=== PATIENT | female | born 1940 | race Caucasian/White ===

== ENCOUNTER → 2017-10-12 | Outpatient (CLI) | payer OTHER | LOC: FIMAGING 12:30 | PROVIDERS: ATTEND Family Medicine | DX: M17.11 Unilateral primary osteoarthritis, right knee (principal) ==

== ENCOUNTER → 2017-10-17 | Outpatient (CLI) | payer OTHER | LOC: FIMAGING 09:57 | PROVIDERS: ATTEND Family Medicine | DX: S83.271A Complex tear of lateral meniscus, current injury, right knee, initial encounter (principal); S83.241A Other tear of medial meniscus, current injury, right knee, initial encounter; M71.21 Synovial cyst of popliteal space [Baker], right knee; M25.461 Effusion, right knee ==

== ENCOUNTER → 2017-12-22 | Outpatient (CLI) | payer OTHER ==
--- NOTE | 2017-12-22 15:11 | CPEKG ---
Heart Rate: 74 RR Interval: 811 P-R Interval: 136 QRSD Interval: 78 QT Interval: 388 QTC Interval: 431 P Holly: 65 QRS Holly: 58 T Wave Holly: 74 EKG Severity - NORMAL ECG - EKG Impression: SINUS RHYTHM EKG Impression: NONSPECIFIC ST_T WAVE ABNORMAILITES Electronically Signed By: Po Caceres 23-Dec-2017 08:27:35
== END ==
LOC: BCP 14:49
PROVIDERS: ATTEND Ophthalmology Pediatric Ophthalmology and Strabismus Specialist
DX: Z01.810 Encounter for preprocedural cardiovascular examination (principal)

== ENCOUNTER → 2018-02-17 | Outpatient (CLI) | payer OTHER ==
[~2018-02-17] MED LIST: IOPAMIDOL (ISOVUE-300) 150 ML BTL ONE
== END ==
LOC: FIMAGING 12:32
PROVIDERS: ATTEND Physician Assistant Medical
DX: N20.0 Calculus of kidney (principal); N28.9 Disorder of kidney and ureter, unspecified
CPT/HCPCS: 74178; Q9967; 82565-PO

== ENCOUNTER 2018-04-09 11:49 | Emergency (ER) | payer OTHER ==
--- NOTE | 2018-04-09 12:18 | EDPHY ---
HPI/HX/ROS/PE/MDM Narrative: CHIEF COMPLAINT: Elbow injury HPI: The patient is an anticoagulated 78 y/o female with a history of CVA arriving with her complaining of a wound on her right elbow that will not stop bleeding. She was carrying pitcher of water and tripped over a rug this morning, causing her to catch herself poorly and injure her right elbow. She has been unable to control the bleeding since then. She denies striking her head, loss of consciousness, or any other injuries from this event. REVIEW OF SYSTEMS: A comprehensive 10 system review of systems is otherwise negative aside from elements mentioned in the history of present illness. PMH: CVA 2016 - Plavix; hypertension; recurrent UTI; CAD post CABG x4; ; appendectomy SOCIAL HISTORY: at bedside. Lives in [place]. Retired. Prior medical records reviewed including admission 01/29/16 for abdominal pain and vomiting. PHYSICAL EXAM: General:Patient is alert, in no acute distress. ENT:Eyes are normal to inspection. ENT inspection normal. Neck: Normal inspection. Full range of motion. Respiratory:No respiratory distress. Breath sounds normal bilaterally. Cardiovascular: Regular rate and rhythm. Strong peripheral pulses. Normal cap refill. Abdomen:The abdomen is nontender to palpation. There are no peritoneal signs. Back: Normal to inspection. No tenderness to palpation. Skin: Normal color. No rash. Warm and dry. Extremities: Right forearm: large macerated laceration with active bleeding along ulnar aspect of arm. Otherwise normal appearance. Full range of motion. Neuro: Oriented x3. Normal motor function. Normal sensory function. ED Course: This is an anticoagulated 78 y/o female who presents with an isolated injury to her right arm secondary to a mechanical trip and fall where she caught her elbow on something causing a large laceration. No other injuries noted on exam. Plan for wound care. Procedure: Laceration repair. Verbal consent was obtained from the patient. The 10cm irregular laceration with multiple flaps on the right forearm was anesthetized using lidocaine with epinephrine. The wound was cleaned with standard ED protocol, draped and explored to its base with a gloved finger. There were no deep structures involved. No tendon injury was identified. The wound required extensive revision of flaps. The wound was repaired in single layer technique with 14 sutures of 4-0 Prolene. The wound repair was complex and there was a small triangle-shaped portion that was unable to be repaired due to missing flesh. The procedure was performed by myself, Dr. Maria. Right elbow x-ray: no fracture. Patient will be discharged with standard care and follow up instructions. Return precautions discussed. She is comfortable with this plan. MDM: This patient presents with a rather complex laceration of the skin near her elbow that required extensive realignment of flaps. There is a triangular area of the wound in which skin is missing, so this will need to granulate in. I discussed these facts with patient in detail as well as need for close follow- up with her PCP. The laceration does not penetrate fascia and XRs are normal. - Data Points Imaging: I viewed and interpreted images myself Medications Given: Discontinued Medications Cyclobenzaprine HCl (Flexeril) 10 mg PO EDNOW ONE Stop: 04/09/18 12:55 Last Admin: 04/09/18 12:56 Dose: 10 mg General Time Seen by Provider: 04/09/18 11:56 Initial Vital Signs: Initial Vital Signs Temperature (C) 36.5 C 04/09/18 11:56 Heart Rate 76 04/09/18 11:56 Respiratory Rate 16 04/09/18 11:56 Blood Pressure 161/87 H 04/09/18 11:56 O2 Sat (%) 96 04/09/18 11:56 O2 Delivery Mode Room Air Allergies/Adverse Reactions: No Known Allergies Allergy (Unverified 01/29/16 17:23) Home Medications: Medication Instructions Recorded Aspirin [Aspirin 81mg (*)] 81 mg PO Q2D 01/29/16 Cyclobenzaprine [Flexeril 10 MG 10 mg PO HS PRN 01/29/16 (*)] Ibuprofen [Motrin (*)] 800 mg PO HS PRN 01/29/16 Lisinopril [Zestril 20 mg (*)] 20 mg PO DAILY 01/29/16 Verapamil [Calan 40MG (*)] 40 mg PO QID 01/29/16 Cholecalciferol Vit D3 [Vitamin D3 1,000 units PO DAILY 01/30/16 (*)] Ferrous Sulfate [Ferrous Sulf 325 325 mg PO DAILY 01/30/16 MG (*)] Herbals/Supplements -Info Only 1 ea PO DAILY 01/30/16 Transfer-3 Fatty Acids [Fish Oil 1000 1,000 mg PO DAILY 01/30/16 mg (*)] Cefdinir [Omnicef (*)] 300 mg PO BID #8 cap 01/31/16 Departure - Departure Disposition: Home, Routine, Self-Care Clinical Impression: Forearm laceration Condition: Good Instructions: Care For Your Stitches (ED), Laceration (ED) Additional Instructions: 1. Keep suture clean and dry. Do not scrub site. 2. Follow up with your primary care provider within 1 week for reevaluation. 3. Return in 14 days for suture removal. 4. Return sooner for severe pain or signs of infection including dramatic increase in redness, swelling, discharge, or fever. Referrals: Grace Mejia MD [Primary Care Provider] - As per Instructions Report Scribed for: Med Maria Report Scribed by: Simi Gloria Date of Report: 04/09/18 Time of Report: 12:20 Physician Review and Approval Statement: Portions of this note were transcribed by an ED scribe. I personally performed the history, physical exam, and medical decision making; and confirm the accuracy of the information in the transcribed note.
[2018-04-09] MEDS ORDERED: CYCLOBENZAPRINE 10 MG TAB PO ONE (12:54)
[2018-04-09 14:44] VITALS: BP 124/56
== END 2018-04-09 14:43 | disposition home or self-care (01) ==
LOC: EDUNIT#
PROC: 0HQBXZZ Repair Right Upper Arm Skin, External Approach (ICD-10-PCS; principal; 2018-04-09)
DX: S51.811A Laceration without foreign body of right forearm, initial encounter (principal); I10 Essential (primary) hypertension; W01.10XA Fall on same level from slipping, tripping and stumbling with subsequent striking against unspecified object, initial encounter; Y92.9 Unspecified place or not applicable

== ENCOUNTER 2018-04-11 09:03 | Emergency (ER) | payer OTHER ==
--- NOTE | 2018-04-11 09:16 | EDPHY ---
H & P Stated Complaint: Wants dsg change&someone to look @ suture site/R hand;here Time Seen by Provider: 04/11/18 09:16 - Personal History Current Tetanus Diphtheria and Acellular Pertussis (TDAP): Unsure - Medical/Surgical History Hx Asthma: No Hx Chronic Respiratory Disease: No Hx Diabetes: No Hx Cardiac Disease: Yes Hx Renal Disease: No Hx Cirrhosis: No Hx Alcoholism: No Hx HIV/AIDS: No Hx Splenectomy or Spleen Trauma: No Other PMH: HTN/QUAD BYPASS - Social History Smoking Status: Never smoked Constitutional: Initial Vital Signs Temperature (C) 36.7 C 04/11/18 09:10 Heart Rate 81 04/11/18 09:10 Respiratory Rate 18 04/11/18 09:10 Blood Pressure 119/60 04/11/18 09:10 O2 Sat (%) 97 04/11/18 09:10 O2 Delivery Mode Room Air Allergies/Adverse Reactions: No Known Allergies Allergy (Verified 04/11/18 09:09) Home Medications: Medication Instructions Recorded Aspirin [Aspirin 81mg (*)] 81 mg PO Q2D 01/29/16 Cyclobenzaprine [Flexeril 10 MG 10 mg PO HS PRN 01/29/16 (*)] Ibuprofen [Motrin (*)] 800 mg PO HS PRN 01/29/16 Lisinopril [Zestril 20 mg (*)] 20 mg PO DAILY 01/29/16 Verapamil [Calan 40MG (*)] 40 mg PO QID 01/29/16 Cholecalciferol Vit D3 [Vitamin D3 1,000 units PO DAILY 01/30/16 (*)] Ferrous Sulfate [Ferrous Sulf 325 325 mg PO DAILY 01/30/16 MG (*)] Herbals/Supplements -Info Only 1 ea PO DAILY 01/30/16 [place]-3 Fatty Acids [Fish Oil 1000 1,000 mg PO DAILY 01/30/16 mg (*)] Cefdinir [Omnicef (*)] 300 mg PO BID #8 cap 01/31/16 Medical Decision Making ED Course/Re-evaluation: CHIEF COMPLAINT: Wound recheck HISTORY OF PRESENT ILLNESS: The patient is an anticoagulated 78 y/o female arriving with her for a wound check on her right arm. Two days ago she stumbled and cut her right forearm, causing a 10cm irregular laceration that could not be completely approximated. She required 14 sutures at the site. She' s had some waxing and waning pain at the site and swelling and ecchymosis below the site of the bandage since then. She has also noticed some bleed-through on her bandage. She denies fever, redness, or other complaints. REVIEW OF SYSTEMS: A comprehensive 10 system review of systems is otherwise negative aside from elements mentioned in the history of present illness and medical decision making. PHYSICAL EXAM: HR, BP, O2 Sat, RR. Temp noted General Appearance: Alert, well hydrated, appropriate, and non-toxic appearing. Head: Atraumatic without scalp tenderness or obvious injury Eyes: Pupils equal, round, reactive to light and accommodation, EOMI, no trauma , no injection. Nose: Atraumatic, no rhinorrhea, clear. Throat: Mucus membranes moist. Neck: Supple, nontender, no lymphadenopathy. Respiratory: No retractions, no distress, no wheezes, and no accessory muscle use. Lungs are clear to auscultation bilaterally. Cardiovascular: Regular rate and rhythm, no murmurs, rubs, or gallops. Good capillary refill all extremities. Gastrointestinal: Abdomen is soft, nontender, non-distended, no masses, no rebound, no guarding, no peritoneal signs. Musculoskeletal: Normal active ROM of all extremities, atraumatic apart from well-healing wound on right forearm. Site is clean, dry, and intact. Mild oozing into bandage noted. Mild swelling and ecchymosis distal to the level of the pressure bandage. Neurological: Alert, appropriate, and interactive. The patient has non-focal cranial nerves, motor, sensory, and cerebellar exam. Skin: No rashes, good turgor, no nodules on palpation. Past medical history: CVA - Plavix; CAD; hypertension; Past surgical history: CABG x4 Family history: Noncontributory Social history: at bedside. Lives in [place]. Retired. DIFFERENTIAL DIAGNOSIS: The differential diagnosis for the patient's symptoms included but was not limited to acute wound recheck. MEDICAL DECISION MAKING: This is an anticoagulated 78 y/o female who presents for a wound recheck of a laceration on her right forearm suffered two days ago during a mechanical trip. The wound is clean, dry, and intact without evidence of infection or dehiscence. Plan for re-bandaging here and recommendation to follow up again in 2 days either with her PCP or in the ED for reevaluation. Tylenol as directed for pain. She is comfortable with this plan. At discharge, patient mentioned she is feeling slightly dizzy today. I offered options for further investigation of this and admission for observation, but she would prefer to go home and sleep. She feels safe to go home with the assistance of her . She understands she can return at any time for further evaluation. Strict return precautions discussed. Departure - Departure Disposition: Home, Routine, Self-Care Clinical Impression: Encounter for wound re-check Condition: Good Instructions: Acute Wounds (ED) Additional Instructions: Please follow up with your primary care provider on Wednesday for a recheck of your wound. If you are unable to get into your doctor by then, please return to the ED for a recheck and bandage change here. Return sooner if you experience severe pain, dramatic increase in swelling, fever, or other worsening of condition. Use Tylenol as directed for pain and elevate arm above the level of your heart when possible to help with swelling. Adult Pain & Fever Control: We recommend Acetaminophen (Tylenol) and Ibuprofen (Motrin,Advil) for pain and fever control. When fever is high or pain severe, both drugs can be used at the same time, but at different intervals. Please note the time differences. Your dose is: Acetaminophen 500mg every 4 to 6 hours Note: do not take Acetaminophen with Hydrocodone (Vicodin, Lortab) or Oxycodone (Percocet). These medications also contain Acetaminophen. No more than 3000mg of Acetaminophen should be taken in 24 hours (for an adult). Referrals: Grace Mejia MD [Primary Care Provider] - As per Instructions Report Scribed for: Helio Ponce Report Scribed by: Simi Gloria Date of Report: 04/11/18 Time of Report: 09:27
[2018-04-11 09:53] VITALS: BP 120/81
== END 2018-04-11 09:55 | disposition home or self-care (01) ==
DX: Z48.00 Encounter for change or removal of nonsurgical wound dressing (principal); I10 Essential (primary) hypertension; Z95.1 Presence of aortocoronary bypass graft

== ENCOUNTER 2018-04-15 16:06 | Observation (INO) | payer OTHER ==
[2018-04-15] MEDS ORDERED: BUPIVACAINE 0.5% 30 ML SDV ONE (17:14)
[2018-04-15] MEDS ORDERED: EPINEPHrine 1 MG/ML INJ ONE (17:14)
[2018-04-15] MEDS ORDERED: ceFAZolin 2 GM/DEXTROSE 100 ML IV ONE (18:07)
--- NOTE | 2018-04-15 18:30 | GHP ---
DATE OF ADMISSION: 04/15/2018 CHIEF COMPLAINT: Right arm laceration. HISTORY OF PRESENT ILLNESS: The patient is a 78-year-old woman who fell Wednesday morning. She last took her Plavix on Wednesday. She had a 10 cm irregular laceration which was reapproximated with 14 sutures. She was re-seen at the ER on April 11, 2018. She had an appointment with her primary care today who noticed devitalized tissue, dehiscence of the wound and reached out to me. PAST MEDICAL HISTORY: Includes hypertension and bypass surgery, history of CVA , retinal hemorrhage of right eye. PAST SURGICAL HISTORY: Adenoidectomy, bladder surgery, CABG, hysterectomy, tonsillectomy. MEDICATIONS: Reviewed in [facility]. ALLERGIES: Ancef and cephalosporins. SOCIAL HISTORY: She is . She has never used tobacco products. REVIEW OF SYSTEMS: 10-point review of systems negative except per HPI. PHYSICAL EXAM: VITALS: Reviewed. Pleasant, thin, well-groomed woman sitting on bed, at bedside. HEENT: Normocephalic. No gross hearing deficits. Mucous membranes moist. Pupils equal and round. No scleral icterus. LUNGS: Clear to auscultation bilaterally. No increased work of breathing. CARDIAC: Regular rate. ARM: Her right arm is dressed. I did see photos of the wound which has completely dehisced and devitalized tissue. NEURO: Grossly intact. SKIN: As above. PSYCH: Mood and affect normal. IMPRESSION AND PLAN: A 78-year-old, status post traumatic fall while on Plavix with wound dehiscence. I will take her to the operating room to debride skin, soft tissue and placed a wound VAC. Risks and benefits, including but not limited to, stroke, heart attack, , blood clots, infection, bleeding, need for additional procedures were all explained. She had her questions answered to her satisfaction and signed the consent. /[id number]/MODL MTDD
[2018-04-15] MEDS ORDERED: LABETALOL HCL 5 MG/ML 20 ML MDV IVP PRN (19:29)
[2018-04-15] MEDS ORDERED: ENALAPRILAT DIHYDRATE 1.25 MG/ML VIAL IVP PRN (19:29)
[2018-04-15] MEDS ORDERED: HYDROCODONE/APAP 5/325 TAB PO PRN (19:29)
[2018-04-15] MEDS ORDERED: PROMETHAZINE HCL 25 MG/ML INJ IVP PRN (19:29)
[2018-04-15] MEDS ORDERED: NALOXONE HCL 0.4 MG/ML INJ IVP PRN (19:29)
[2018-04-15] MEDS ORDERED: ONDANSETRON 4 MG/2 ML VIAL IVP PRN ×2 (19:29→22:17)
[2018-04-15] MEDS ORDERED: ACETAMINOPHEN 500 MG TAB PO PRN (19:29)
--- NOTE | 2018-04-15 19:29 | PDANEPAE ---
ANE Past Medical History - Cardiovascular History Hx Hypertension: Yes Hx Arrhythmias: No Hx Chest Pain: No Hx Coronary Artery / Peripheral Vascular Disease: Yes Hx CHF / Valvular Disease: No Hx Palpitations: No Cardiovascular History Comment: CABG 2006, USED TO HAVE TACHYCARDIA PRIOR TO TAKING VERAPAMIL - Pulmonary History Hx COPD: No Hx Asthma/Reactive Airway Disease: No Hx Recent Upper Respiratory Infection: No Hx Oxygen in Use at Home: No Hx Sleep Apnea: No - Neurologic History Hx Cerebrovascular Accident: Yes Hx Seizures: No Hx Dementia: No - Endocrine History Hx Diabetes: No Obesity: no - Renal History Hx Renal Disorders: No Renal History Comment: UTI - Liver History Hx Hepatic Disorders: No - Neurological & Psychiatric Hx Hx Neurological and Psychiatric Disorders: Yes Neurological / Psychiatric History Comment: 2016 CVA - Cancer History Hx Cancer: No - Congenital Disorder History Hx Congenital Disorders: No - GI History GERD: no Hx Gastrointestinal Disorders: No - Chronic Pain History Chronic Pain: Yes (KNEES) - Surgical History Prior Surgeries: CABG X4 2006. BLADDER SX. HYSTERECTOMY. SINUS SURGERY. RIGHT HAND PIN ANE Review of Systems Review of Systems: - Exercise capacity METS (RN): 3 METS ANE Patient History - Allergies Allergies/Adverse Reactions: No Known Allergies Allergy (Verified 04/11/18 09:09) - Home Medications Home medications: home medication list seen and reviewed Home Medications: Cyclobenzaprine [Flexeril 10 MG (*)] 10 mg PO HS PRN 01/29/16 [Last Taken ] Ibuprofen [Motrin (*)] 800 mg PO HS PRN 01/29/16 [Last Taken 04/14/18] Lisinopril [Zestril 20 mg (*)] 20 mg PO DAILY 01/29/16 [Last Taken 04/14/18] Verapamil [Calan 40MG (*)] 40 mg PO QID 01/29/16 [Last Taken 04/15/18 08:00] Cholecalciferol Vit D3 [Vitamin D3 (*)] 1,000 units PO DAILY 01/30/16 [Last Taken 04/14/18] Ferrous Sulfate [Ferrous Sulf 325 MG (*)] 325 mg PO DAILY 01/30/16 [Last Taken 04/14/18] Herbals/Supplements -Info Only 1 ea PO DAILY 01/30/16 [Last Taken 04/14/18] SHARITA-D 12 HOUR TABLET 04/15/18 [Last Taken 04/15/18 08:00] Acetamin-Codein 300-30 mg/12.5 04/15/18 [Last Taken 04/14/18] Clopidogrel 04/15/18 [Last Taken 04/09/18] Duloxetine HCl 04/15/18 [Last Taken 04/15/18 08:00] Methenamine Brit 04/15/18 [Last Taken 04/14/18] Methocarbamol 04/15/18 [Last Taken 04/14/18] - NPO status NPO Status: no food or drink >8 hours NPO Since - Liquids (Date): 04/15/18 NPO Since - Liquids (Time): 08:00 NPO Since - Solids (Date): 04/15/18 NPO Since - Solids (Time): 11:00 - Anes Hx Anes Hx: no prior problems - Smoking Hx Smoking Status: Never smoked ANE Labs/Vital Signs - Vital Signs Blood Pressure: 142/76 Heart Rate: 71 Respiratory Rate: 14 O2 Sat (%): 95 Height: 154.94 cm Weight: 55.338 kg ANE Physical Exam - Airway Neck exam: FROM Mallampati Score: Class 2 Mouth exam: normal dental/mouth exam - Pulmonary Pulmonary: no respiratory distress, no rales or rhonchi, clear to auscultation - Cardiovascular Cardiovascular: regular rate and rhythym, no murmur, rub, or gallop - ASA Status ASA Status: III ANE Anesthesia Plan Anesthesia Plan: GA w LMA
[2018-04-15] MEDS ORDERED: fentaNYL 100 MCG/2 ML INJ ONE ×2 (19:53→22:14)
[2018-04-15] MEDS ORDERED: PROPOFOL 200 MG/20 ML VIAL ONE ×2 (19:53→20:50)
[2018-04-15] MEDS ORDERED: LIDOCAINE 2% JELLY 5 ML TUBE ONE (19:53)
[2018-04-15] MEDS ORDERED: ONDANSETRON 4 MG/2 ML VIAL ONE (19:53)
[2018-04-15] MEDS ORDERED: POLYMYXIN B SULFATE 500,000 UNIT/10 ML SYR IRR ONE (20:10)
[2018-04-15] MEDS ORDERED: BACITRACIN 50,000 UNITS/10 ML SYR IRR ONE (20:10)
[2018-04-15] MEDS ORDERED: BUPIVACAINE/EPI 0.5% 30 ML SDV ONE (20:10)
[2018-04-15] MEDS ORDERED: THROMBIN (BOVINE) 5,000 UNIT VIAL TP ONE (21:35)
--- NOTE | 2018-04-15 21:59 | POSTANESTH ---
Post Anesthetic Evaluation Cardiovascular Status: Normal, Stable, Similar to Pre-Op Cond Respiratory Status: Normal, Stable, Similar to Pre-op Cond. Level of Consciousness/Mental Status: Can Participate in Eval, Moderately Sleepy Pain Control: Adequate, Prn Tx Ordered Nausea/Vomiting Control: Adequate, Prn Tx Ordered Complications Possibly Related to Anesthesia: None Noted
[2018-04-15] MEDS: fentaNYL 100 MCG/2 ML INJ IVP PRN ×3 (22:14→22:43)
[2018-04-15] MEDS ORDERED: ACETAMINOPHEN 325 MG TAB PO PRN (22:17)
[2018-04-15] MEDS ORDERED: IBUPROFEN 600 MG TAB PO PRN (22:18)
--- NOTE | 2018-04-15 22:20 | POSTOPPROG ---
Post Op Note Date of Operation: 04/15/18 Surgeon: Alondra Francois Anesthesiologist: aleksandra Anesthesia: GET(General Endotracheal) Pre-op Diagnosis: traumatic wound dehiscence Post-op Diagnosis: same Indication: 78 yo with traumatic wound dehiscence Procedure: debride skin soft tissue fascia and muscle 9.5x5x0.6 Inf/Abcess present in the surg proc area at time of surgery?: Yes Depth: Deep Incisional (Fascial) EBL: 50-100 Specimen(s): culture
[2018-04-16 04:37] LABS: PLATELET COUNT 186 10^3/uL (150-400)
--- NOTE | 2018-04-16 07:04 | SOAPPROG ---
SOAP Progress Note Assessment/Plan: Assessment: 78 year old s/p fall with traumatic wound to r arm. Initially sutured and dehisced POD # 1 s/p debridement skin soft tissue, muscle, tendon Wound Vac - if can arrange home health, then vac change MWF - if home health not available then can come to my office on and Currently has appointment at wound healing center on Wednesday at 9- cancel if gets home health. Otherwise keep for vac change Resume home meds. Restart plavix on 04/17 S: O Sitting in bed CTAB RRR Wound vac to suction Plan: 04/16/18 07:00 Objective: Vital Signs Temp Pulse Resp BP Pulse Ox 36.5 C 80 18 167/73 H 95 04/16/18 04:00 04/16/18 04:00 04/16/18 04:00 04/16/18 04:00 04/16/18 04:00 Laboratory Results 04/16/18 03:55 04/15/18 04/16/18 04/17/18 05:59 05:59 05:59 Intake Total 900 Output Total 200 Balance 700 ICD10 Worksheet Patient Problems: Problems Problem Status Onset Dehydration Acute ESBL (extended spectrum beta-lactamase) producing bacteria infection Acute 03/13 Urinary tract infection Acute Vomiting Acute
--- NOTE | 2018-04-16 07:32 | GOP ---
DATE OF OPERATION: 04/15/2018 SURGEON: Alondra Francois MD ANESTHESIA: General anesthesia. ANESTHESIOLOGIST: Cornelio Brown MD PREOPERATIVE DIAGNOSIS: Traumatic wound dehiscence, right forearm. POSTOPERATIVE DIAGNOSIS: Traumatic wound dehiscence, right forearm. PROCEDURE PERFORMED: Debridement skin, soft tissue, fascia and muscle, right arm. FINDINGS: Necrotic tissue, retained hematoma, wound measures 9.5 x 5 x 0.6 cm. SPECIMENS: Fluid for culture. ESTIMATED BLOOD LOSS: 50 cc. INDICATIONS: This is a 78-year-old who is on anticoagulation and fell. She had it primarily repaire d. She saw her primary care doctor today who immediately reached out to me and asked if she could be brought in. DESCRIPTION OF PROCEDURE: Patient was brought into the operating room, placed supine on the table an d anesthesia was administered. Her right arm was prepped and draped in the usual sterile fashion. I used a knife to excise along the periphery of the wound including all of the sutures that had dehisc ed. I immediately could evaluate severe undermining, both proximally and distally. I used a curette to remove old hematoma. There were coagulated blood vessels, devitalized tissue and at 1 portion, a small pocket of purulent material. I took a culture of this area. I continued until all tissue was healthy and clean. Hemostasis was achieved with electrocautery. I also placed 5000 units of thromb in in the wound. The wound measures 9.5 x 5 x 0.6 cm. I placed a wound VAC on the wound. She was a wakened in the operating room, extubated, transferred to PACU in stable condition. /[id number]/MODL
--- NOTE | 2018-04-16 10:48 | ASMTLACE ---
LACE Length of stay for Answers: Less than 1 day current admission Acuity / Level of Answers: No Care: Did the patient have an inpatient admission? Comorbidities - select Answers: Other Notes: traumatic wound all that apply dehiscence Score: 1 Date Signed: 04/16/2018 10:48 AM Electronically Signed By:Zahida Sung RN
--- NOTE | 2018-04-16 10:55 | ASMTCMCOM ---
CM Note CM Note Notes: Chart reviewed. Patient post op wound debridement with a wound vac. Orders signed by Faxed to [facility] for authorization of wound vac. HHC arranged per September at [facility] for RN to provide in home wound care. Met with patient and her to verify home address and phone number. CM available should ther needs arise. Plan: Home with wound vac and HHC. Date Signed: 04/16/2018 10:53 AM Electronically Signed By:Zahida Sung RN
[2018-04-16 11:16] VITALS: BP 131/65
--- NOTE | 2018-04-16 11:22 | PDIAF ---
- Diagnosis Diagnosis: traumatic wound right arm Code Status: Full Code - Medication Management Discharge Medications: Medications to Continue on Transfer Cyclobenzaprine [Flexeril 10 MG (*)] 10 mg PO HS PRN 01/29/16 [Last Taken ] Ibuprofen [Motrin (*)] 800 mg PO HS PRN 01/29/16 [Last Taken 04/14/18] Lisinopril [Zestril 20 mg (*)] 30 mg PO DAILY 01/29/16 [Last Taken 04/14/18] Verapamil [Calan 40MG (*)] 40 mg PO QID 01/29/16 [Last Taken 04/15/18 08:00] Cholecalciferol Vit D3 [Vitamin D3 (*)] 1,000 units PO DAILY 01/30/16 [Last Taken 04/14/18] Herbals/Supplements -Info Only 1 ea PO DAILY 01/30/16 [Last Taken 04/14/18] Cetirizine HCl/Pseudoephedrine [All Day Allergy-D Tablet] 1 each PO DAILY #0 [Last Taken 04/15/18 08:00] Clopidogrel Bisulfate [Plavix (*)] 75 mg PO DAILY #0 04/15/18 [Last Taken ] DULoxetine [Cymbalta 30 MG (*)] 30 mg PO AD #0 04/15/18 [Last Taken 04/15/18 08: 00] Methenamine Brit [Hiprex 1 gm (*)] 500 mg PO BID #0 04/15/18 [Last Taken ] Methocarbamol [Robaxin 750 mg (*)] 750 mg PO DAILY PRN #0 04/15/18 [Last Taken 04/14/18] Acetaminophen/Codeine 300/30Mg [Tylenol #3 (*)] 1 each PO DAILY PRN 04/16/18 [ Last Taken Unknown] Atorvastatin Calcium [Lipitor 40 mg (*)] 40 mg PO HS 04/16/18 [Last Taken Unknown] Ferrous Gluconate 324 mg PO BID 04/16/18 [Last Taken Unknown] Discharge Medications: Refer to the Discharge Home Medication list for PRN reason. - Orders Services needed: Home Care, Registered Nurse Home Care Face to Face: I certify that this patient was under my care and that I had the required [id number] encounter meeting the encounter requirements on the discharge day. My findings support the fact that the patient is homebound as defined in Home Care Face to Face Continued: CMS Chapter 7 Medicare Benefits Manual 30.1.1 , The condition of the patient is such that there exists a normal inability to leave home and consequently, leaving home would require a considerable and taxing effort. Diet Recommendation: no restrictions on diet Wound Care Instructions: change wound vac MWF Additional Instructions: Do not shower with wound vac in place Keep vac plugged in whenever possible Call if concerns of infection, vac not functioning correctly or bleeding Can restart Plavix on 04/17 - Follow Up Care Current Providers and Referrals: Alondra Francois MD [Medical Doctor] - (1 week (if you have home health, make this appointment for a MWF with me). If you do not have home health then make appointments with me on Mondays and . You currently have an appointment at the wound healing center on Wednesday. If you have home health, we can cancel this appointment.) Grace Mejia MD [Primary Care Provider] -
[2018-04-16] MEDS ORDERED: DULoxetine 30 MG CAP PO SCH (11:30)
--- NOTE | 2018-04-16 17:22 | ASMTCMCOM ---
CM Note CM Note Notes: Order faxed to [facility] about 1030 am this morning. When I checked messages they reported anther date needed filled in. I was not told to send an operative note or H&P. I refaxed the corrected form about 1pm . Tried to call our local contact with no avail. Spoke with Zuleyka who was helpful and thought I would here shortly. Patient and nursing staff expressing growing frustration. Multiple calls placed. I faxed everything again this being the 3rd fax shortly after 4:15 per customer assistance associate named Reese. I expressed the urgency of filling the order and he reassured me that a CM was working on it. CM to continue to follow. Plan: Home with [facility] and wound vac. Date Signed: 04/16/2018 05:22 PM Electronically Signed By:Zahida Sung RN
--- NOTE | 2018-04-16 17:27 | ASMTCMCOM ---
CM Note CM Note Notes: [facility] order finally approved. Serial Number [id number]. Patiet signed form and it was faxed to [facility] reciept confirmed. Will notify September of [facility] that patient will dc. RN to call reeport to [facility]. Plan: dc to home Date Signed: 04/16/2018 05:26 PM Electronically Signed By:Zahida Sung RN
[2018-04-16] MEDS ORDERED: ATORVASTATIN CALCIUM 40 MG TAB PO SCH (21:00)
[2018-04-16] MEDS ORDERED: CYCLOBENZAPRINE 10 MG TAB PO SCH (21:00)
[2018-04-17] MEDS ORDERED: LISINOPRIL 20 MG TAB PO SCH (09:00)
== END 2018-04-16 17:34 | disposition home health service (06) ==
LOC: FSGY 16:06 → F2W 23:09 → UNDODISOB 04-16 16:20
PROVIDERS: ADMIT Surgery; ATTEND Surgery
PROC: 0HQDXZZ Repair Right Lower Arm Skin, External Approach (ICD-10-PCS; principal; 2018-04-15 20:00)
DX: T81.31XA Disruption of external operation (surgical) wound, not elsewhere classified, initial encounter (principal); W19.XXXA Unspecified fall, initial encounter; Z79.01 Long term (current) use of anticoagulants
CPT/HCPCS: 13160; G0378; J0171; J0690; J2405; J2704; J3010

== ENCOUNTER 2018-10-15 05:08 | Emergency (ER) | payer OTHER ==
--- NOTE | 2018-10-15 05:16 | EDPHY ---
H & P Stated Complaint: UTI-L flank pian Time Seen by Provider: 10/15/18 05:16 HPI/ROS: HPI CHIEF COMPLAINT: "I think I have a urinary tract infection" HISTORY OF PRESENT ILLNESS: Patient is a 78-year-old female she reports bladder pressure, dysuria and urinary frequency and believes that she may have a urinary tract infection. This started around 8:00 p.m. Last night. Her symptoms worsened throughout the night with urinary frequency dysuria and bladder pressure. She denies any vomiting or fever. Patient states she has the urge to go and has suprapubic discomfort. But is unable to produce a large amount urine. Bladder scan will be obtained Past Medical History: Significant medical history for hypertension, coronary artery disease, CVA , history of urinary tract infection Past Surgical History: Quadruple bypass Social History: Denies drugs alcohol tobacco. Family History: Noncontributory ROS REVIEW OF SYSTEMS: 10 Systems were reviewed and negative with the exception of the elements mentioned in the history of present illness. Exam Constitutional triage nursing summary reviewed, vital signs reviewed, awake/ alert. Eyes normal conjunctivae and sclera, EOMI, PERRLA. HENT normal inspection, atraumatic, moist mucus membranes, no epistaxis, neck supple/ no meningismus, no raccoon eyes. Respiratory clear to auscultation bilaterally, normal breath sounds, no respiratory distress, no wheezing. Cardiovascular rate normal, regular rhythm, no murmur, no edema, distal pulses normal. Gastrointestinal mild tender palpation suprapubic, soft, non-tender, no rebound , no guarding, normal bowel sounds, no distension, no pulsatile mass. Genitourinary no CVA tenderness. Musculoskeletal no midline vertebral tenderness, full range of motion, no calf swelling, no tenderness of extremities, no meningismus, good pulses, neurovascularly intact. Skin pink, warm, & dry, no rash, skin atraumatic. Neurologic awake, alert and oriented x 3, AAOx3, moves all 4 extremities equally, motor intact, sensory intact, CN II-XII intact, normal cerebellar, normal vision, normal speech. Psychiatric normal mood/affect. Heme/Lymph/Immune no lymphadenopathy. Differential Diagnosis: Differential diagnosis includes but is not limited to and in no particular order: Bowel obstruction, appendicitis, gallbladder disease, diverticulitis, colitis, enteritis, perforated viscus, gastritis, GERD , esophagitis, urinary tract infection, pyelonephritis, kidney stones Medical Decision Making: Check urinalysis. Re-evaluation: Bladder scan performed shows 760 cc of urine. Patient is asking for Hogan catheter. Patient re-evaluated 6:46 a.m. Patient had a Hogan catheter placed and close to 900 cc of urine were removed. She had urinary retention feels much better. Urine culture sent. Antibiotic started Keflex and peridium. 1st dose given in the emergency room. Keflex prescription and peridium Additionally I recommend she stays well hydrated drink lots of fluids and follows up with Urology to have Hogan removed next week. Return precautions discussed with her return emergency room if worsening abdominal pain, fever, vomiting, not doing well Hogan catheter stay in place. Patient understands she needs to have this removed in a few days. She is going to follow up with Urology. Followed by Nathaniel Yoo. Source: Patient - Personal History Current Tetanus Diphtheria and Acellular Pertussis (TDAP): Yes - Medical/Surgical History Hx Asthma: No Hx Chronic Respiratory Disease: No Hx Diabetes: No Hx Cardiac Disease: Yes Hx Renal Disease: No Hx Cirrhosis: No Hx Alcoholism: No Hx HIV/AIDS: No Hx Splenectomy or Spleen Trauma: No Other PMH: HTN/QUAD BYPASS, arthritis,UTI - Social History Smoking Status: Never smoked Constitutional: Initial Vital Signs Temperature (C) 36.4 C 10/15/18 05:11 Heart Rate 82 10/15/18 05:11 Respiratory Rate 20 10/15/18 05:11 Blood Pressure 166/87 H 10/15/18 05:11 O2 Sat (%) 98 10/15/18 05:11 O2 Delivery Mode Room Air Allergies/Adverse Reactions: No Known Allergies Allergy (Verified 10/15/18 05:11) Home Medications: Medication Instructions Recorded Cyclobenzaprine [Flexeril 10 MG 10 mg PO HS PRN 01/29/16 (*)] Ibuprofen [Motrin (*)] 800 mg PO HS PRN 01/29/16 Lisinopril [Zestril 20 mg (*)] 30 mg PO DAILY 01/29/16 Verapamil [Calan 40MG (*)] 40 mg PO QID 01/29/16 Cholecalciferol Vit D3 [Vitamin D3 1,000 units PO DAILY 01/30/16 (*)] Herbals/Supplements -Info Only 1 ea PO DAILY 01/30/16 Cetirizine HCl/Pseudoephedrine 1 each PO DAILY #0 04/15/18 [All Day Allergy-D Tablet] Clopidogrel Bisulfate [Plavix (*)] 75 mg PO DAILY #0 04/15/18 DULoxetine [Cymbalta 30 MG (*)] 30 mg PO AD #0 04/15/18 Methenamine Brit [Hiprex 1 gm (*)] 500 mg PO BID #0 04/15/18 Methocarbamol [Robaxin 750 mg (*)] 750 mg PO DAILY PRN #0 04/15/18 Acetaminophen/Codeine 300/30Mg 1 each PO DAILY PRN 04/16/18 [Tylenol #3 (*)] Atorvastatin Calcium [Lipitor 40 40 mg PO HS 04/16/18 mg (*)] Ferrous Gluconate 324 mg PO BID 04/16/18 Cephalexin [Keflex] 500 mg PO Q6H #28 cap 10/15/18 Phenazopyridine HCl [Pyridium] 200 mg PO TID #15 tab 10/15/18 Medical Decision Making - Data Points Microbiology Results: MICROBIOLOGY 10/15/18 05:15 Urine,Clean Catch Urine Culture - Preliminary Medications Given: Discontinued Medications Cephalexin (Keflex 500 Mg Prepack#4) 1 btl TAKEHOME EDNOW ONE PRN Reason: Protocol Stop: 10/15/18 05:34 Last Admin: 10/15/18 05:48 Dose: 1 btl Cephalexin HCl (Keflex) 500 mg PO EDNOW ONE PRN Reason: Protocol Stop: 10/15/18 05:34 Last Admin: 10/15/18 05:47 Dose: 500 mg Phenazopyridine HCl (Pyridium) 200 mg PO EDNOW ONE Stop: 10/15/18 05:34 Last Admin: 10/15/18 05:47 Dose: 200 mg Departure - Departure Disposition: Home, Routine, Self-Care Clinical Impression: Urinary tract infection, Urinary retention, Hogan catheter in place Condition: Good Instructions: Cephalexin (By mouth), Phenazopyridine (By mouth), Urinary Tract Infection in Women (ED), Acute Urinary Retention in Women (ED), Hogan Catheter Placement and Care (ED) Additional Instructions: 1. Drink lots of fluids stay well-hydrated 2. Antibiotics as prescribed 3. Return if worse. Referrals: Grace Mejia MD [Primary Care Provider] - As per Instructions Nathaniel Yoo MD [Medical Doctor] - As per Instructions Prescriptions: Cephalexin [Keflex] 500 mg PO Q6H #28 cap Phenazopyridine HCl [Pyridium] 200 mg PO TID #15 tab
[2018-10-15] MEDS ORDERED: PHENAZOPYRIDINE HCL 200 MG TAB PO ONE (05:33)
[2018-10-15] MEDS ORDERED: CEPHALEXIN 500MG PREPACK#4 BTL TAKEHOME ONE (05:33)
[2018-10-15] MEDS ORDERED: CEPHALEXIN 500 MG CAP PO ONE (05:33)
[2018-10-15 06:45] VITALS: BP 141/70
== END 2018-10-15 07:31 | disposition home or self-care (01) ==
DX: N39.0 Urinary tract infection, site not specified (principal); R33.9 Retention of urine, unspecified

== ENCOUNTER 2018-10-18 19:13 | Emergency (ER) | payer OTHER ==
--- NOTE | 2018-10-18 19:25 | EDPHY ---
H & P Stated Complaint: wants catheter removed Time Seen by Provider: 10/18/18 19:25 HPI/ROS: CHIEF COMPLAINT: Requesting Hogan catheter removal HISTORY OF PRESENT ILLNESS: The patient was seen in the emergency department 3 days ago and diagnosed with a urinary tract infection and urinary retention. She had a Hogan catheter placed at that point time. She was discharged home on Keflex. She reports that she has done well. She denies any fever or acute flank pain. She denies vomiting or additional acute complaints. She would like her catheter removed. REVIEW OF SYSTEMS: A comprehensive 10 point review of systems is otherwise negative aside from elements mentioned in the history of present illness. Source: Patient Exam Limitations: No limitations - Medical/Surgical History Hx Asthma: No Hx Chronic Respiratory Disease: No Hx Diabetes: No Hx Cardiac Disease: Yes Hx Renal Disease: No Hx Cirrhosis: No Hx Alcoholism: No Hx HIV/AIDS: No Hx Splenectomy or Spleen Trauma: No Other PMH: HTN/QUAD BYPASS, arthritis,UTI - Social History Smoking Status: Never smoked - Physical Exam Exam: General Appearance: Alert, no distress Eyes: Pupils equal and round no pallor or injection ENT, Mouth: Mucous membranes moist Respiratory: There are no retractions, lungs are clear to auscultation Cardiovascular: Regular rate and rhythm Gastrointestinal: Abdomen is soft and nontender, no masses, bowel sounds normal Skin: Warm and dry, no rashes Musculoskeletal: Neck is supple nontender Extremities: symmetrical, full range of motion Constitutional: Initial Vital Signs Temperature (C) 36.4 C 10/18/18 19:17 Heart Rate 75 10/18/18 19:17 Respiratory Rate 18 10/18/18 19:17 Blood Pressure 147/68 H 10/18/18 19:17 O2 Sat (%) 94 10/18/18 19:17 O2 Delivery Mode Room Air Allergies/Adverse Reactions: No Known Allergies Allergy (Verified 10/15/18 05:11) Home Medications: Medication Instructions Recorded Cyclobenzaprine [Flexeril 10 MG 10 mg PO HS PRN 01/29/16 (*)] Ibuprofen [Motrin (*)] 800 mg PO HS PRN 01/29/16 Lisinopril [Zestril 20 mg (*)] 30 mg PO DAILY 01/29/16 Verapamil [Calan 40MG (*)] 40 mg PO QID 01/29/16 Cholecalciferol Vit D3 [Vitamin D3 1,000 units PO DAILY 01/30/16 (*)] Herbals/Supplements -Info Only 1 ea PO DAILY 01/30/16 Cetirizine HCl/Pseudoephedrine 1 each PO DAILY #0 04/15/18 [All Day Allergy-D Tablet] Clopidogrel Bisulfate [Plavix (*)] 75 mg PO DAILY #0 04/15/18 DULoxetine [Cymbalta 30 MG (*)] 30 mg PO AD #0 04/15/18 Methenamine Brit [Hiprex 1 gm (*)] 500 mg PO BID #0 04/15/18 Methocarbamol [Robaxin 750 mg (*)] 750 mg PO DAILY PRN #0 04/15/18 Acetaminophen/Codeine 300/30Mg 1 each PO DAILY PRN 04/16/18 [Tylenol #3 (*)] Atorvastatin Calcium [Lipitor 40 40 mg PO HS 04/16/18 mg (*)] Ferrous Gluconate 324 mg PO BID 04/16/18 Cephalexin [Keflex] 500 mg PO Q6H #28 cap 10/15/18 Phenazopyridine HCl [Pyridium] 200 mg PO TID #15 tab 10/15/18 Medical Decision Making ED Course/Re-evaluation: The patient will have her Hogan catheter removed. Her abdominal examination was benign. She has no clinical evidence of pyelonephritis. I reviewed the results of the patient's prior ED visit. She was noted to have a E coli urinary tract infection which is sensitive to Keflex. The patient will be advised to return to the emergency department if she is unable to urinate. She is also given customary urinary tract infection aftercare instructions. Differential Diagnosis: Differential diagnosis considered includes urinary retention, UTI, pyelonephritis Departure - Departure Disposition: Home, Routine, Self-Care Clinical Impression: Urinary tract infection Condition: Good Instructions: Urinary Tract Infection in Women (ED) Additional Instructions: 1. Return to the emergency department if you are unable to urinate. 2. Return to the emergency department sooner for any increasing pain, fever, vomiting or other concerns. 3. Please continue your antibiotics as written. Referrals: Grace Mejia MD [Primary Care Provider] - As per Instructions
[2018-10-18 21:07] VITALS: BP 138/72
== END 2018-10-18 21:06 | disposition home or self-care (01) ==
DX: N39.0 Urinary tract infection, site not specified (principal); I10 Essential (primary) hypertension